=== PATIENT | male | born 1985 | race Caucasian/White ===

== ENCOUNTER 2019-09-18 20:53 | Emergency (ER) | payer OTHER ==
[2019-09-18] MEDS ORDERED: Acetaminophen/oxyCODONE 325-5 MG Tab PO ONE (21:30)
--- NOTE | 2019-09-18 21:39 | EDM.PDOC ---
ED HPI GENERAL MEDICAL PROBLEM - General Chief Complaint: Back Pain or Injury Stated Complaint: FALL AT WORK Time Seen by Provider: 09/18/19 21:19 Source of Information: Reports: Patient, RN Notes Reviewed History Limitations: Reports: No Limitations - History of Present Illness INITIAL COMMENTS - FREE TEXT/NARRATIVE: Patient is a 34-year-old male who presents to the ED for the evaluation of a tailbone injury. Patient notes he was at work, did not notice the wet floor ended up slipping and falling directly onto his tailbone, this was approximately 20 minutes prior to arrival to the ER today. He states he did not hit his head, he denies pain anywhere else other than his chronic hip pain. He further denies any recent illness, or any sort of numbness tingling down the legs at all as well. He states that there is exquisite pain when he tries to put any pressure on it or sits on it at all. He did not take anything for pain medication prior to coming to the ER. Patient denies any other sick-like symptoms, fever/chills, cough/shortness of breath, chest pain, nausea/vomiting/diarrhea. Lower Back Pain Score (Numeric/FACES): 8 - Related Data Allergies Allergy/AdvReac Type Severity Reaction Status Date / Time No Known Allergies Allergy Verified 09/18/19 21:07 Past Medical History HEENT History: Reports: Impaired Vision, Other (See Below) Other HEENT History: fractured nose Genitourinary History: Reports: Renal Calculus - Past Surgical History HEENT Surgical History: Reports: Oral Surgery Dermatological Surgical History: Reports: Skin Biopsy Social & Family History - Tobacco Use Smoking Status *Q: Current Every Day Smoker Years of Tobacco use: 20 Packs/Tins Daily: 0.5 - Caffeine Use Caffeine Use: Reports: Coffee, Energy Drinks - Recreational Drug Use Recreational Drug Use: No ED ROS GENERAL - Review of Systems Review Of Systems: Comprehensive ROS is negative, except as noted in HPI. ED EXAM,LOWER BACK PAIN/INJURY - Physical Exam Exam: See Below Exam Limited By: No Limitations General Appearance: Alert, WD/WN, No Apparent Distress Head: Atraumatic, Normocephalic Respiratory/Chest: No Respiratory Distress, Lungs Clear, Normal Breath Sounds, No Accessory Muscle Use, Chest Non-Tender Cardiovascular: Normal Peripheral Pulses, Regular Rate, Rhythm, No Murmur Back Exam: Normal Inspection, Full Range of Motion, Other (pt has tenderness over coccyx, not obvious sacral tenderness.) Extremities: Normal Inspection, Normal Range of Motion, Normal Capillary Refill Neurological: Alert, Normal Mood/Affect, Normal Dorsiflexion, Normal Plantar Flexion, Normal Gait, No Motor/Sensory Deficits Psychiatric: Normal Affect, Normal Mood Skin Exam: Warm, Dry, Intact, Normal Color, No Rash Course - Vital Signs Last Recorded V/S: Last Vital Signs Temp 97.6 F 09/18/19 21:03 Pulse 96 09/18/19 21:03 Resp 20 09/18/19 21:03 BP 130/83 09/18/19 21:03 Pulse Ox 99 09/18/19 21:03 - Orders/Labs/Meds Orders: Active Orders 24 hr Category Date Time Status Sacrum Coccyx Min 2V [CR] Stat Exams 09/18/19 21:19 Ordered DME for Discharge [COMM] Routine Oth 09/18/19 22:13 Ordered Meds: Medications Discontinued Medications Generic Name Dose Route Start Last Admin Trade Name Nena PRN Reason Stop Dose Admin Oxycodone/Acetaminophen 1 tab 09/18/19 21:30 09/18/19 21:41 Percocet 325-5 Mg PO 09/18/19 21:31 1 tab ONETIME ONE Administration - Re-Assessments/Exams Free Text/Narrative Re-Assessment/Exam: 09/18/19 21:39 Patient presents to the ED for evaluation of his tailbone injury. Have ordered sacrum/coccyx images for evaluation, and have ordered 1 tablet of Percocet 5/325mg for pain management. 09/18/19 22:20 Patient's x-rays have been obtained, and do appear to show a possible acute fracture of the coccyx. I did have Dr. Dwyer over read these, he says this could be a normal variant or acute fracture. Nonetheless patient is having pain we will give him a donut pillow and some pain medication have him follow-up with Ortho for further management. Patient is okay with this plan at this time. Departure - Departure Time of Disposition: 22:21 Disposition: Home, Self-Care 01 Condition: Good Clinical Impression: Acute coccygeal pain - Discharge Information *PRESCRIPTION DRUG MONITORING PROGRAM REVIEWED*: Yes *COPY OF PRESCRIPTION DRUG MONITORING REPORT IN PATIENT MARY GRACE: No Instructions: Tailbone Injury, [id number] Referrals: PCP,None [Primary Care Provider] - Forms: ED Department Discharge Additional Instructions: You have been evaluated in the ED for your tailbone injury. Your x-ray demonstrated a possible tailbone fracture. Please use ice as tolerated to the affected area. You may take Tylenol 500 mg or ibuprofen 600mg q6 hrs for pain relief. Please do so until you have a tolerable level of pain with activity. Do not exceed 4000mg Tylenol, Do not exceed 3200mg ibuprofen in a 24 hour time period. You were given a prescription for a strong pain medication, oxycodone/acetaminophen 5/325, please take 1 tab every 6 hours as needed for pain not relieved by Tylenol or ibuprofen alone. Please note this does contain Tylenol in it, so do not take more than 4000 mg in a 24-hour time span. These medications can be addictive, so please take as few as possible to achieve adequ ate pain control. These meds can also be quite constipating, recommend that you increase your oral fluid intake and take a stool softener like MiraLAX while taking these medications. Please call Ortho for follow-up and further evaluation Dr. Patel is our orthopedic surgeon, his office number is [phone]. Please call and set up an appointment as soon as possible for further management. Please return to ED if your symptoms should change or worsen. Sepsis Event Note (ED) - Evaluation Sepsis Screening Result: No Definite Risk - Focused Exam Vital Signs: Vital Signs Temp Pulse Resp BP Pulse Ox 09/18/19 21:03 97.6 F 96 20 130/83 99 - My Orders Last 24 Hours: My Active Orders 09/18/19 21:19 Sacrum Coccyx Min 2V [CR] Stat 09/18/19 22:13 DME for Discharge [COMM] Routine - Assessment/Plan Last 24 Hours: My Active Orders 09/18/19 21:19 Sacrum Coccyx Min 2V [CR] Stat 09/18/19 22:13 DME for Discharge [COMM] Routine
--- NOTE | 2019-09-20 09:08 | CR ---
Sacrum and coccyx: 3 views of the sacrum and coccyx were obtained. Anterior angulated coccyx is seen which is a normal variant. No acute fracture, dislocation or other bony abnormality is appreciated. Impression: 1. Nothing acute is appreciated on three-view sacrum and coccyx study. Diagnostic code #1 This report was dictated in MDT
== END 2019-09-18 22:35 | disposition home or self-care (01) ==
LOC: JD.ED 20:53
DX: M53.3 Sacrococcygeal disorders, not elsewhere classified (principal); F17.210 Nicotine dependence, cigarettes, uncomplicated; W01.0XXA Fall on same level from slipping, tripping and stumbling without subsequent striking against object, initial encounter; Y92.89 Other specified places as the place of occurrence of the external cause; Y99.0 Civilian activity done for income or pay
CPT/HCPCS: 72220; 99283; A9270

== ENCOUNTER 2019-11-15 10:40 | Emergency (ER) | payer OTHER ==
--- NOTE | 2019-11-15 11:43 | EDM.PDOC ---
ED HPI GENERAL MEDICAL PROBLEM - General Chief Complaint: Respiratory Problem Stated Complaint: COUGH (COVID EXPOSURE) Time Seen by Provider: 11/15/19 11:17 Source of Information: Reports: Patient, RN Notes Reviewed History Limitations: Reports: No Limitations - History of Present Illness INITIAL COMMENTS - FREE TEXT/NARRATIVE: Patient is a 34-year-old male who presents to the ED for evaluation of his cough and possible COVID exposure. Patient notes he has had a cough for the past few days, he was told yesterday that his roommate got sent home from work due to a fever and she was told that her boss had COVID. The patient's remain as a VIDEOGAME DESIGNER, the patient works at [employer]. He is not having any fevers or chills, any sort of shortness of breath nausea or vomiting, but he does state that he is having some changes in his taste and smell as well. Other than these above symptoms, he has no other past medical history for lung issues or heart issues. He is a normal relatively healthy person. His O2 sats are 98% at time of triage, respiratory rate is 16, temperature is 97.6 F, and pulse rate is 94. - Related Data Allergies Allergy/AdvReac Type Severity Reaction Status Date / Time No Known Allergies Allergy Verified 11/15/19 11:11 Home Meds: Home Meds . [No Known Home Meds] 11/15/19 [History] Past Medical History HEENT History: Reports: Impaired Vision, Other (See Below) Other HEENT History: fractured nose Genitourinary History: Reports: Renal Calculus - Past Surgical History HEENT Surgical History: Reports: Oral Surgery Dermatological Surgical History: Reports: Skin Biopsy Social & Family History - Tobacco Use Smoking Status *Q: Current Every Day Smoker Years of Tobacco use: 16 Packs/Tins Daily: 0.5 - Caffeine Use Caffeine Use: Reports: None - Recreational Drug Use Recreational Drug Use: No ED ROS GENERAL - Review of Systems Review Of Systems: Comprehensive ROS is negative, except as noted in HPI. ED EXAM, GENERAL - Physical Exam Exam: See Below Exam Limited By: No Limitations General Appearance: Alert, WD/WN, No Apparent Distress Respiratory/Chest: No Respiratory Distress, Lungs Clear, Normal Breath Sounds, No Accessory Muscle Use, Chest Non-Tender Cardiovascular: Normal Peripheral Pulses, Regular Rate, Rhythm, No Murmur Neurological: Alert, Oriented, Normal Cognition, No Motor/Sensory Deficits Psychiatric: Normal Affect, Normal Mood Skin Exam: Warm, Dry, Intact, Normal Color, No Rash Course - Vital Signs Last Recorded V/S: Last Vital Signs Temp 97.6 F 11/15/19 11:06 Pulse 94 11/15/19 11:06 Resp 16 11/15/19 11:06 BP 117/79 11/15/19 11:06 Pulse Ox 98 11/15/19 11:06 - Orders/Labs/Meds Orders: Active Orders 24 hr Category Date Time Status Chest 1V Frontal [CR] Stat Exams 11/15/19 11:33 Ordered CORONAVIRUS COVID-19 PCR [facility] Stat Lab 11/15/19 11:33 Ordered - Re-Assessments/Exams Free Text/Narrative Re-Assessment/Exam: 11/15/19 11:40 Patient presents to the ED for evaluation of his cough and possible cold exposure. He will have a state coronavirus test taken, along with a baseline chest x-ray, and discharged home with a work note and directions to self quarantine until he gets his state test results. Patient is okay with this plan at this time. Departure - Departure Time of Disposition: 11:41 Disposition: Home, Self-Care 01 Condition: Good Clinical Impression: Cough with exposure to COVID-19 virus - Discharge Information *PRESCRIPTION DRUG MONITORING PROGRAM REVIEWED*: No *COPY OF PRESCRIPTION DRUG MONITORING REPORT IN PATIENT MARY GRACE: No Instructions: COVID-19: How to Protect Yourself and Others - CDC, COVID-19 Frequently Asked Questions Referrals: Yany Keating MD [Primary Care Provider] - Forms: ED Department Discharge, ED Return to Work/School Form Additional Instructions: You were seen in the ER today for your COVID-19 like symptoms. Your chest x-ray showed no signs of pneumonia at this time. Your oxygen levels were great at 98% on room air. At this time we did test you for COVID-19. We ask that you self-quarantine and limit your exposure to others until you receive your results from the state. You have been given a work note to reflect this. Swabs are sent from this facility on a daily basis, at 2:30 PM, you should expect up to 3-5 business days for positive or negative results. However you may receive results earlier than this. We are doing our best to call as soon as we get results from the [place] dept. of Health. Please try to increase your oral fluid intake, and eat multiple small meals throughout the day, to keep yourself healthy. You may take 500 mg Tylenol every hours 6 hours for pain/fever relief. Do not exceed 4000 mg Tylenol in a 24-hour time span. However, running a fever is your body's natural response to illness, and it allows the body to develop antibodies to disease, we are recommending trying to limit the use of Tylenol as much as possible to allow your body's natural immune response. Sepsis Event Note (ED) - Evaluation Sepsis Screening Result: No Definite Risk - Focused Exam Vital Signs: Vital Signs Temp Pulse Resp BP Pulse Ox 11/15/19 11:06 97.6 F 94 16 117/79 98 - My Orders Last 24 Hours: My Active Orders 11/15/19 11:33 Chest 1V Frontal [CR] Stat CORONAVIRUS COVID-19 PCR [facility] Stat - Assessment/Plan Last 24 Hours: My Active Orders 11/15/19 11:33 Chest 1V Frontal [CR] Stat CORONAVIRUS COVID-19 PCR [facility] Stat
--- NOTE | 2019-11-15 19:37 | CR ---
Chest: Portable view of the chest was obtained. Comparison: No prior chest imaging is available. Heart size and mediastinum are normal. Lungs show no acute parenchymal change. Bony structures are grossly intact. Impression: 1. Nothing acute is seen on portable chest x-ray. Diagnostic code #1 This report was dictated in MDT
== END 2019-11-15 12:30 | disposition home or self-care (01) ==
LOC: JD.ED 10:40
DX: R05 Cough (principal); F17.210 Nicotine dependence, cigarettes, uncomplicated; Z20.828 Contact with and (suspected) exposure to other viral communicable diseases
CPT/HCPCS: 71045; 71045-26; 99282; 99283-25; U0002